=== PATIENT | female | born 1985 | race Caucasian/White ===

== ENCOUNTER → 2016-06-06 | Outpatient (REF) | payer OTHER | LOC: M LAB REF 16:52 | PROVIDERS: ATTEND Surgery | DX: D48.5 Neoplasm of uncertain behavior of skin (principal) ==

== ENCOUNTER → 2016-10-24 | Outpatient (REF) | payer OTHER | LOC: M LAB REF 16:44 | PROVIDERS: ATTEND Surgery | DX: D23.39 Other benign neoplasm of skin of other parts of face (principal) ==

== ENCOUNTER → 2017-08-26 | Outpatient (CLI) | payer OTHER | LOC: M WUC 15:16 | DX: M67.471 Ganglion, right ankle and foot (principal); R60.0 Localized edema | CPT/HCPCS: 73630 ==

== ENCOUNTER → 2018-05-04 | Outpatient (CLI) | payer BC ==
[2018-05-04 18:04] LABS: BASO % 0.2 % (0.0-1.0); EOS # 0.2 10^3/uL (0.0-0.50); EOS % 1.5 % (0.0-3.0); HEMATOCRIT 40.4 % (36.0-47.0); HEMOGLOBIN 13.6 g/dl (12.0-15.5); IMMATURE GRANULOCYTE % 0.3 % (0-3.0); LYMPH # 3.6 10^3/uL (1.5-4.5); LYMPH % 28.8 % (24.0-44.0); MEAN CORPUSCULAR HEMOGLOBIN 32.1 pg (27.0-33.0); MEAN CORPUSCULAR HGB CONC 33.7 g/dl (32.0-36.5); MEAN CORPUSCULAR VOLUME 95.3 fl (80.0-96.0); MONO # 0.8 10^3/uL (0.0-0.8); MONO % 6.2 % (0.0-5.0); NEUTROPHILS # 7.9 10^3/uL (1.8-7.7); PLATELET COUNT, AUTOMATED 334 10^3/uL (150-450); RED BLOOD COUNT 4.24 10^6/uL (4.00-5.40); RED CELL DISTRIBUTION WIDTH 13.3 % (11.5-14.5); WHITE BLOOD COUNT 12.5 10^3/uL (4.0-10.0)
[2018-05-04 21:07] LABS: CHLAMYDIA DNA AMPLIFICATION NEGATIVE (NEGATIVE); GC DNA AMPLIFICATION NEGATIVE (NEGATIVE)
[2018-05-06 09:32] LABS: HEPATITIS C VIRUS ABY INDEX 0.2 INDEX (<0.8)
[2018-05-06 09:32] LABS: HBsAg Prenatal NEGATIVE (NEGATIVE); HIV 1&2 SCREEN CENTAUR NEGATIVE (NEGATIVE); RUBELLA IgG QUALITATIVE IMMUNE (IMMUNE)
== END ==
LOC: M SMT 15:49
DX: Z36.89 Encounter for other specified antenatal screening (principal)
CPT/HCPCS: 86762

== ENCOUNTER → 2018-06-03 | Outpatient (CLI) | payer OTHER | LOC: M SMT 13:03 | PROVIDERS: ATTEND Obstetrics & Gynecology | DX: Z36.89 Encounter for other specified antenatal screening (principal); Z13.79 Encounter for other screening for genetic and chromosomal anomalies ==

== ENCOUNTER → 2018-07-14 | Outpatient (CLI) | payer BC ==
--- NOTE | 2018-07-15 06:00 | REP ---
Clinical: Anatomical evaluation. Comparison: None. Findings: Examination demonstrates a single live intrauterine in breech presentation. motion is identified by technologist. Placenta is noted posterior and grade grade zero without evidence for placenta previa or abruption. Amniotic fluid volume is normal. Cervix measures 5.4 cm in length and appears closed. No evidence for nuchal cord. Gestational age by LMP 18 weeks 1 day with EDGAR 12/14/2018 . Gestational age by current measurements 18 weeks 4 days with EDGAR 12/11/2018. FHR equals 147 beats per minute. BPD 4.4 cm 18 weeks 3 days HC 15.9 cm 18 weeks 5 days AC 13.8 cm 19 weeks 1 day FL 2.9 cm 18 weeks 5 days HC/AC ratio 1.15 Estimated weight 266 grams ( 81st percentile). Anatomical assessment demonstrates normal structures including cranium, choroid plexus, cavum, cerebellum/posterior fossa, facial features, lungs, four-chamber heart/ventricular outflow tracts, diaphragm, stomach, cord insertion/three-vessel cord, kidneys/bladder, spine, and extremities. Impression: Single live intrauterine in breech presentation demonstrating appropriate interval growth. Anatomical assessment is complete and normal.
== END ==
LOC: M WHC 14:38
PROVIDERS: ATTEND Advanced Practice Midwife
DX: O32.1XX0 Maternal care for breech presentation, not applicable or unspecified (principal); Z36.89 Encounter for other specified antenatal screening; Z3A.18 18 weeks gestation of pregnancy

== ENCOUNTER → 2018-09-23 | Outpatient (REF) | payer BC ==
[2018-09-23 18:24] LABS: HEMATOCRIT 32.1 % (36.0-47.0); HEMOGLOBIN 10.7 g/dl (12.0-15.5); MEAN CORPUSCULAR HEMOGLOBIN 32.7 pg (27.0-33.0); MEAN CORPUSCULAR HGB CONC 33.3 g/dl (32.0-36.5); MEAN CORPUSCULAR VOLUME 98.2 fl (80.0-96.0); PLATELET COUNT, AUTOMATED 323 10^3/uL (150-450); RED BLOOD COUNT 3.27 10^6/uL (4.00-5.40); WHITE BLOOD COUNT 13.9 10^3/uL (4.0-10.0)
== END ==
LOC: M LABSMT 17:04
PROVIDERS: ATTEND Advanced Practice Midwife
DX: Z34.82 Encounter for supervision of other normal pregnancy, second trimester (principal)
CPT/HCPCS: 36415; 82950; 85027; 86850; 86900; 86901; J2790

== ENCOUNTER → 2018-11-19 | Outpatient (REF) | payer BC ==
[~2018-11-19] MED LIST: ACET-683 PO; IBUP80TA PO; PRENTAB9 PO
== END ==
LOC: M LAB REF 16:49
PROVIDERS: ATTEND Advanced Practice Midwife
DX: Z34.83 Encounter for supervision of other normal pregnancy, third trimester (principal); Z3A.00 Weeks of gestation of pregnancy not specified

== ENCOUNTER 2018-11-23 12:21 | Inpatient (IN) | payer BC ==
[~2018-11-23] VITALS: Ht 162.6 cm; Wt 92.3 kg
[2018-11-23] VITALS (7 sets, daily range): BP systolic 125–144; BP diastolic 62–74
[2018-11-23] MEDS ORDERED: PRENTAB9 PO (12:42)
[2018-11-23 14:02] LABS: HEMATOCRIT 34.6 % (36.0-47.0); HEMOGLOBIN 11.8 g/dl (12.0-15.5); MEAN CORPUSCULAR HEMOGLOBIN 32.9 pg (27.0-33.0); MEAN CORPUSCULAR HGB CONC 34.1 g/dl (32.0-36.5); MEAN CORPUSCULAR VOLUME 96.4 fl (80.0-96.0); PLATELET COUNT, AUTOMATED 321 10^3/uL (150-450); RED BLOOD COUNT 3.59 10^6/uL (4.00-5.40); WHITE BLOOD COUNT 17.1 10^3/uL (4.0-10.0)
[2018-11-23] MEDS ORDERED: OXYTOCIN 30 UNITS IN 0.9% NaCl 500ML IV BAG (J2590) As Ordered ONE (14:13)
[2018-11-23] MEDS ORDERED: OXYTOCIN DRIP 30 UNITS in APPROPRIATE DILUENT 1 EA IV SCH (14:15)
[2018-11-23] MEDS: LR 1,000 ML IV SCH ×2 (14:35→17:33)
[2018-11-23] MEDS ORDERED: FENTANYL 2MCG/ML ROPIVACAINE 0.2% IN 0.9% NACL 100ML IVBAG As Ordered ONE (16:56)
[2018-11-23] MEDS ORDERED: ePHEDrine SULFATE 25 MG/5 ML(5MG/ML) SYRINGE IV PRN (18:30)
[2018-11-23] MEDS ORDERED: diphenhydrAMINE INJ 50MG/ML VIAL (J1200) IV PRN (18:30)
[2018-11-23] MEDS ORDERED: FENTANYL/ROPIVACAINE/NACL BAG 100 ML EPIDURAL SCH (18:30)
[2018-11-23] MEDS ORDERED: NALOXONE INJ 0.4 MG/1 ML VIAL (J2310) IV PRN (18:30)
[2018-11-23] MEDS ORDERED: EPIDURAL/PCA KEYS XX PRN (18:30)
[2018-11-23] MEDS ORDERED: ONDANSETRON 4MG/2ML VIAL (J2405) IV PRN (18:30)
[2018-11-23] MEDS ORDERED: LACTATED RINGER'S 1000 ML IV PRN (18:30)
[2018-11-23] MEDS ORDERED: EPIDURAL COMMENT XX SCH (18:30)
[2018-11-23] MEDS ORDERED: REFRIGERATOR IV KEYS XX PRN (18:30)
[2018-11-24] MEDS ORDERED: OXYTOCIN DRIP 30 UNITS in APPROPRIATE DILUENT 1 EA IV SCH (00:18)
[2018-11-24 00:30] LABS: CORD GAS ABE A -5.8; CORD GAS ABE V -4.9; CORD GAS HCO3 A 22.1 MEQ/L; CORD GAS HCO3 V 20.7 MEQ/L; CORD GAS O2 SAT A 45.3 %; CORD GAS O2 SAT V 72.1 %; CORD GAS PCO2 A 52.6 mmHg; CORD GAS PCO2 V 40.3 mmHg; CORD GAS PH A 7.241 UNITS; CORD GAS PH V 7.328 UNITS; CORD GAS PO2 A 22.5 mmHg; CORD GAS PO2 V 30.7 mmHg; CORD GAS SBC A 18.6 MEQ/L; CORD GAS SBC V 19.9 MEQ/L; CORD GAS TCO2 A 23.7 MEQ/L; CORD GAS TCO2 V 21.9 MEQ/L
[2018-11-24] MEDS ORDERED: ACETAMINOPHEN 500 MG TAB PO PRN (00:30)
[2018-11-24] MEDS ORDERED: DIBUCAINE 1% OINTMENT 30GM TOP PRN (00:30)
[2018-11-24] MEDS ORDERED: RHOGAM 300 MCG (1500 IU) INJ (J2790) IM SCH (00:30)
[2018-11-24] MEDS ORDERED: ACETAMINOPHEN TAB 650MG DOSE (2X325MG) PO PRN (00:30)
[2018-11-24] MEDS ORDERED: ANUSOL HC CREAM 30GM TOP PRN (00:30)
[2018-11-24] MEDS ORDERED: METHYLERGONOVINE MALEATE 0.2 MG TAB PO PRN (00:30)
[2018-11-24] MEDS ORDERED: MOM 30ML SUSPENSION UDC PO PRN (00:30)
[2018-11-24] MEDS ORDERED: DOCUSATE SODIUM 100 MG CAP PO PRN (00:30)
[2018-11-24] MEDS ORDERED: IBUPROFEN 600 MG TAB PO PRN (00:30)
[2018-11-24] MEDS ORDERED: MEASLES,MUMPS,RUBELLA VACCINE INJ (MMR-II) (90707) SC SCH (00:30)
[2018-11-24] MEDS ORDERED: IBUPROFEN 800 MG TAB PO PRN (00:30)
[2018-11-24 02:12] VITALS: BP 134/61
--- NOTE | 2018-11-24 05:24 | HPE ---
DATE OF ADMISSION: 11/23/2018 REASON FOR ADMISSION: Rupture of membranes. HISTORY OF PRESENT ILLNESS: Mrs. Kumar is a 33-year-old 2, para 0 who presents at 37 weeks-zero days estimated gestational age by her last menstrual period confirmed by first trimester ultrasound with complaints of leakage of clear fluid that occurred approximately 03:00 a.m. this morning. She denies any vaginal bleeding, had a regular pattern of contractions. She reports active movement. Her course has been unremarkable. She initiated care in her first trimester and has been appropriate throughout. PAST MEDICAL HISTORY: None. PAST SURGICAL HISTORY: None. PAST OBSTETRICAL HISTORY: She has had a termination. MEDICATIONS: vitamins. ALLERGIES: She has no known drug allergies. SOCIAL HISTORY: Denies any alcohol, tobacco or drug use during her . She is a former half-pack a day smoker. PHYSICAL EXAMINATION: Vital signs: Stable. She is afebrile. She has a category 1 heart rate tracing. She was seen the office where physical exam was performed. General appearance: Well appearing. Lungs: Clear to auscultation bilaterally. Cardiovascular: Regular rate and rhythm. Abdomen: Gravid, nontender. Estimated weight (EFW) 3000 grams. Cervix: She is 1 cm dilated, 50% effaced and grossly ruptured. LABORATORY DATA: labs reveal blood type is O negative, antibody screen is negative. Rubella is immune. RPR is nonreactive. Hepatitis surface antigen negative. HIV is negative. Hep C is nonreactive. Chlamydia, gonorrhea screens negative. She had a normal 1-hour Glucola and she is GBS negative. ASSESSMENT: 1. Mrs. Kumra is a 33-year-old 2, para 0, 37 weeks with premature rupture of membranes. 2. Reassuring status. PLAN: 1. Admit to labor and delivery, CBC, RPR, type and screen. 2. Discussed augmentation with patient with Pitocin and as well reviewed all the procedures performed in labor and delivery. She has also been verbally consented for emergency surgery, blood products and anesthesia and desires to proceed with admission. 3. Will initiate her with augmentation with Pitocin.
--- NOTE | 2018-11-24 06:42 | DN ---
DATE OF DELIVERY: 11/23/2018 TIME OF : 2344 hours. GENDER: Female. SCORES: 7 and 8. WEIGHT: 6 pounds 14 ounces or 3120 grams. LACERATIONS: First degree midline laceration. ESTIMATED BLOOD LOSS: 300 mL. COUNTS: Five laparotomy sponges were accounted for prior to and after delivery, three sharps were removed from the delivery field. ANESTHESIA: Epidural COMPLICATIONS: Shoulder dystocia, approximately 30 seconds, that was alleviated with suprapubic pressure. DELIVERY NOTE: On November 23, 2018 at 2344 Mrs. Tang, a 33-year-old 2, now para 1, had a spontaneous vaginal delivery of a live born female infant, scores seven and eight, weight was 3120 grams or 6 pounds 14 ounces. Head was delivered initially YOLANDA, then with gentle downward traction the right shoulders partially delivered. Evette maneuver was employed, suprapubic pressure was applied alleviating the right anterior shoulder. There was a nuchal cord which was manually reduced and this was followed by delivery of the left shoulder and corpus. Cord was clamped times two and was cut by the father of the baby and the infant was taken over to the warmer. Cord gases and blood was obtained. Placenta was then drained and delivered grossly intact. A premixed bag of 500 mL of normal saline with 30 units of Pitocin was then bolused along with uterine massage until the uterus was firm. On inspection there was a first degree midline laceration was repaired with #3-0 Vicryl Rapide. On reinspection, the cervix, vagina and perineum was grossly intact and hemostatic. Mom and baby were recovering in stable condition. The couple has decided to name their daughter
[2018-11-24 06:54] VITALS: BP 107/52
--- NOTE | 2018-11-24 08:06 | NUR ---
PPD#1 S: Doing well w/o complaints. O: vss, AF Gen: well appearing abd: soft, nttp, FF@u-2 ext: neg calf tenderness A/P: PPD# 1 s/p -recovering in stable condition -cont routine care Mounika Trujillo MD
[2018-11-24] MEDS: PRENATAL VITAMINS CHEWABLE TABLET PO SCH (08:19)
[2018-11-24 18:00] VITALS: BP 119/61
[2018-11-25 06:00] VITALS: BP 124/58
[2018-11-25] MEDS ORDERED: ACET-683 PO (07:47)
[2018-11-25] MEDS ORDERED: IBUP80TA PO (07:47)
[2018-11-25] MEDS: PRENATAL VITAMINS CHEWABLE TABLET PO SCH (10:14)
== END 2018-11-25 12:15 | disposition home or self-care (01) | DRG 560 ==
LOC: M LDI 12:21 → M OBS 11-24 01:47
PROVIDERS: ADMIT Obstetrics & Gynecology; ATTEND Obstetrics & Gynecology
PROC: 10E0XZZ Delivery of Products of Conception, External Approach (ICD-10-PCS; principal; 2018-11-23)
PROC: 0HQ9XZZ Repair Perineum Skin, External Approach (ICD-10-PCS; 2018-11-23)
DX: O42.02 Full-term premature rupture of membranes, onset of labor within 24 hours of rupture (principal); Z3A.37 37 weeks gestation of pregnancy; O70.0 First degree perineal laceration during delivery; Z37.0 Single live birth; O69.81X0 Labor and delivery complicated by cord around neck, without compression, not applicable or unspecified; O66.0 Obstructed labor due to shoulder dystocia

== ENCOUNTER → 2019-03-08 | Outpatient (REF) | payer BC, OTHER ==
[2019-03-13 09:52] LABS: HPV LOW VOL RFLX Negative (Negative)
== END ==
LOC: M LAB REF 10:56
PROVIDERS: ATTEND Advanced Practice Midwife
DX: Z12.4 Encounter for screening for malignant neoplasm of cervix (principal)

== ENCOUNTER → 2019-12-13 | Outpatient (CLI) | payer SELFPAY | LOC: M LABSMTC 13:04 | PROVIDERS: ATTEND Pediatrics | DX: Z20.828 Contact with and (suspected) exposure to other viral communicable diseases (principal); Z11.59 Encounter for screening for other viral diseases ==

== ENCOUNTER → 2020-10-04 | Outpatient (REF) | payer OTHER ==
[2020-10-04 14:07] LABS: FREE T4 1.09 NG/DL (0.76-1.46); LUTEINIZING HORMONE 9.2 mIU/mL; THYROID STIMULATING HORMONE 1.06 uIU/ML (0.358-3.740)
[2020-10-04 14:08] LABS: FOLLICLE STIMULATING HORMONE 4.7 mIU/mL
== END ==
LOC: M PLALAB 11:40
PROVIDERS: ATTEND Obstetrics & Gynecology
DX: N95.1 Menopausal and female climacteric states (principal); Z12.4 Encounter for screening for malignant neoplasm of cervix

== ENCOUNTER → 2020-10-25 | Outpatient (REF) | payer OTHER ==
[2020-10-25 13:40] LABS: HEMATOCRIT 45.6 % (36.0-47.0); HEMOGLOBIN 14.7 g/dl (12.0-15.5); MEAN CORPUSCULAR HEMOGLOBIN 31.6 pg (27.0-33.0); MEAN CORPUSCULAR HGB CONC 32.2 g/dl (32.0-36.5); MEAN CORPUSCULAR VOLUME 98.1 fl (80.0-96.0); PLATELET COUNT, AUTOMATED 322 10^3/uL (150-450); RED BLOOD COUNT 4.65 10^6/uL (4.00-5.40); WHITE BLOOD COUNT 9.1 10^3/uL (4.0-10.0)
[2020-10-25 14:18] LABS: ALBUMIN 3.3 GM/DL (3.2-5.2); ALT/SGPT 23 U/L (12-78); BILIRUBIN,TOTAL 0.2 MG/DL (0.2-1.0); BLOOD UREA NITROGEN 8 MG/DL (7-18); CALCIUM LEVEL 8.9 MG/DL (8.5-10.1); CARBON DIOXIDE LEVEL 28 MEQ/L (21-32); CHLORIDE LEVEL 109 MEQ/L (98-107); CHOLESTEROL LEVEL 229 MG/DL (<200); CHOLESTEROL RISK RATIO 6.026 (<5); CREATININE FOR GFR 0.79 MG/DL (0.55-1.30); FREE T4 0.95 NG/DL (0.76-1.46); GLOMERULAR FILTRATION RATE > 60.0 (>60); GLUCOSE, FASTING 76 MG/DL (70-100); HDL CHOLESTEROL 38 MG/DL (>40); LDL CHOLESTEROL 163 MG/DL (<100); NON-HDL-C 191 MG/DL; POTASSIUM SERUM 4.6 MEQ/L (3.5-5.1); SODIUM LEVEL 140 MEQ/L (136-145); TOTAL PROTEIN 6.5 GM/DL (6.4-8.2); TRIGLYCERIDES LEVEL 139 MG/DL (<150)
[2020-10-25 14:21] LABS: EOSINOPHILS 3 % (0-3); LYMPHOCYTES 33 % (16-44); MONOCYTES 1 % (0-5); NEUTROPHILS 63 % (28-66)
[2020-10-25 14:22] LABS: PLATELET ESTIMATE NORMAL (NORMAL)
== END ==
LOC: M SFHCPLAZ 09:41
PROVIDERS: ATTEND Nurse Practitioner Family
DX: Z00.00 Encounter for general adult medical examination without abnormal findings (principal); Z13.228 Encounter for screening for other metabolic disorders; Z13.220 Encounter for screening for lipoid disorders

== ENCOUNTER → 2021-06-12 | Outpatient (REF) | payer OTHER | LOC: M SFHCLERA 10:00 | PROVIDERS: ATTEND Nurse Practitioner Family | DX: R39.9 Unspecified symptoms and signs involving the genitourinary system (principal) ==

== ENCOUNTER 2021-07-06 13:22 | Emergency (ER) | payer OTHER ==
[~2021-07-06] VITALS: Ht 162.6 cm; Wt 83.4 kg
[2021-07-06] MEDS ORDERED: BACTDSTA PO (14:24)
[2021-07-06] MEDS ORDERED: AMPICILLIN SOD/SULBACTAM SOD 3 GM in D5W MINI-BAG PLUS 100 ML IV ONE (16:15)
[2021-07-06] MEDS ORDERED: dexameTHASONE 20MG/5ML VIAL (J1100 PER 1MG) IV ONE (16:15)
[2021-07-06 16:50] LABS: BASO % 0.2 % (0.0-1.0); EOS # 0.2 10^3/uL (0.0-0.5); EOS % 1.6 % (0.0-3.0); HEMATOCRIT 44.5 % (36.0-47.0); HEMOGLOBIN 14.8 g/dl (12.0-15.5); LYMPH # 2.9 10^3/uL (1.5-5.0); LYMPH % 29.7 % (24.0-44.0); MEAN CORPUSCULAR HEMOGLOBIN 32.2 pg (27.0-33.0); MEAN CORPUSCULAR HGB CONC 33.3 g/dl (32.0-36.5); MEAN CORPUSCULAR VOLUME 96.7 fl (80.0-96.0); MONO # 0.5 10^3/uL (0.0-0.8); MONO % 5.6 % (2.0-8.0); NEUTROPHILS # 6.1 10^3/uL (1.5-8.5); NEUTROPHILS % 62.6 % (36.0-66.0); PLATELET COUNT, AUTOMATED 330 10^3/uL (150-450); WHITE BLOOD COUNT 9.7 10^3/uL (4.0-10.0)
[2021-07-06] MEDS ORDERED: ISOVUE-370 76% 100ML VIAL As Ordered ONE (17:23)
[2021-07-06 17:25] LABS: ERYTHROCYTE SEDIMENTATION RATE 9 mm/hr (0-20)
[2021-07-06] MEDS ORDERED: LIDOCAINE 2% MDV 20ML VIAL SC ONE (19:10)
[2021-07-06] MEDS ORDERED: DIFL150T PO (19:28)
[2021-07-06] MEDS ORDERED: AMOX875T2 PO (19:28)
[2021-07-06 19:34] VITALS: BP 111/61
== END 2021-07-06 19:40 | disposition home or self-care (01) ==
LOC: M ED 13:22
DX: L02.01 Cutaneous abscess of face (principal); K04.7 Periapical abscess without sinus; F17.200 Nicotine dependence, unspecified, uncomplicated
CPT/HCPCS: 10060; 70491; 80047; 83605; 84702; 85025; 85652; 86140; 87040; 87070; 87077; 87186; 87205; 96365; 96375; 99283; J1100; Q9967

== ENCOUNTER → 2021-10-02 | Outpatient (REF) | payer OTHER ==
[~2021-10-02] MED LIST changes: +AMOX875T2 PO; +BACTDSTA PO; +DIFL150T PO
== END ==
LOC: M LAB REF 17:10
PROVIDERS: ATTEND Surgery
DX: R22.0 Localized swelling, mass and lump, head (principal)

== ENCOUNTER → 2022-04-22 | Outpatient (CLI) | payer OTHER ==
[2022-04-22 13:25] LABS: CHLORIDE LEVEL 106 MMOL/L (98-107); POTASSIUM SERUM 4.4 MMOL/L (3.5-5.1); SODIUM LEVEL 141 MMOL/L (136-145)
[2022-04-22 13:26] LABS: ALBUMIN 3.4 G/DL (3.2-5.2); CARBON DIOXIDE LEVEL 25 MMOL/L (20-31)
[2022-04-22 13:31] LABS: BLOOD UREA NITROGEN 13 MG/DL (9-23); CALCIUM LEVEL 8.8 MG/DL (8.5-10.1); GLUCOSE, FASTING 91 MG/DL (60-100); TRIGLYCERIDES LEVEL 94 MG/DL (<150)
[2022-04-22 13:32] LABS: ALKALINE PHOSPHATASE 66 U/L (46-116); HDL CHOLESTEROL 50.9 MG/DL (>40)
[2022-04-22 13:33] LABS: ALT/SGPT 12 U/L (7.0-40); AST/SGOT 12 U/L (<34); BILIRUBIN,TOTAL 0.5 MG/DL (0.3-1.2); TOTAL PROTEIN 6.2 G/DL (5.7-8.2)
[2022-04-22 13:34] LABS: CHOLESTEROL LEVEL 202 MG/DL (<200); CHOLESTEROL RISK RATIO 3.96 (<5); CREATININE FOR GFR 0.83 MG/DL (0.55-1.30); GLOMERULAR FILTRATION RATE > 60.0 (>60); LDL CHOLESTEROL 132.3 MG/DL (<100); NON-HDL-C 151 MG/DL
== END ==
LOC: M WUC 08:52
PROVIDERS: ATTEND Nurse Practitioner Family
DX: E78.5 Hyperlipidemia, unspecified (principal)

== ENCOUNTER → 2023-01-11 | Outpatient (REF) | payer OTHER | LOC: M LAB REF 17:53 | PROVIDERS: ATTEND Physician Assistant | DX: R30.0 Dysuria (principal) ==